=== PATIENT | male | born 1960 | race Caucasian/White ===

== ENCOUNTER 2023-11-07 11:15 | Oncology outpatient (recurring) (ONCR) | payer BC, SELFPAY ==
--- NOTE | 2023-11-03 12:48 | N.ONRAD NP_ITS ---
Radiation Oncology New Patient Visit Patient: Jack Sexton MR#: [id number] : 1960 Age: 63 Sex: Male Dictated by: Dr. Becky Masterson Date of Service: 11/03/2023 Referring Physician(s) : Diagnosis: Radiotherapy to date: Summary > No prior radiation therapy. Chief Complaint / History of Present Illness: Patient is a 63-year-old gentleman who was actually diagnosed with prostate cancer 4 to 5 years ago while he was living in [place]. 3 years ago he moved here to [place]. Since that time he had not really proceeded with any follow-up for his prostate cancer. In [place] he was under watchful waiting. He then began to have increasing shortness of breath and thought that he was perhaps out of shape. He went to his primary care and they identified a murmur which prompted immediate referral to [place] to the lieutenant/deputy. He subsequently has had an aortic valve replaced. This is been approximately 2 months ago. In the interim he had a repeat biopsy of his prostate which showed a Creston score 7 and 8 adenocarcinoma the prostate. Stage T1c N0, PSA 16. It was initially felt he might be a candidate for [employer]. He subsequently had a PET scan done which showed that he had involvement of the left seminal vesicle and pelvic and retroperitoneal nodes. He is here today to discuss external beam radiation. Current Medications: Allergies: Medical History: Ventricular fibrillation, vitamin D deficiency, anemia, prostate cancer, myocardial infarction, no history of collagen vascular disease. No previous radiation therapy. Surgical History: Aortic valve replacement, knee replacement Family History: Father in his early 60s, mother in her mid 70s she was an avid smoker Social History: He currently lives here in [place] with his . 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 Current Complaints / Review of Systems: . IP SS score of 10 Vital Signs: Performed on 11/03/2023 11:06 AM BMI - 25.991 kg/m2 (high), Height - 69 in, Weight - 176 lbs, Temperature - 97 f, Pulse - 69 /min, Respiration - 18 /min, O2 Sat - 99 %, Pain - 0, Fatigue - 0 and BP - 127/ 83 mm(hg). Physical Exam: General patient is in no apparent distress. He is accompanied by his . HEENT: Normocephalic atraumatic. Pupils are equal, sclera clear, extraocular muscles intact Pulmonary: Respiratory rate is regular nonlabored Cardiovascular: Regular rate and rhythm Abdomen: Patient has a very flat abdomen with minimal adipose tissue Extremities: Without clubbing cyanosis or edema Skin: No signs of ecchymoses or hyper or hypopigmentation Neurological: Alert and orient x 3. Gait and speech within normal limits Psych: Affect appropriate for current situation Performance Status: 100 Pathology: Adenocarcinoma the prostate Creston score 7 and 8 Lab: PSA 16 Imaging: See HPI Impression: Adenocarcinoma the prostate Cassy score 7 and 8, PSA 16 with a positive PET scan and pelvic and periaortic nodes Plan: I reviewed with the patient the past history. We discussed the results of his scans and his biopsy. We reviewed the most aggressive treatment option would be to proceed with ADT and external beam radiation. We discussed the pros and cons of ADT. He is visiting with medical oncology on Friday. We discussed the radiation portion of the treatment. We reviewed the simulation process. We discussed the daily treatment regiment. We reviewed the risks and side effects both acute and long-term. All of his questions and his 's questions were answered. I have recommended to him at this point that we proceed with 5 and half weeks of treatment along with ADT. We would allow his ADT to take effect for approximately a month prior to starting with the process of simulation. I have asked him to call on Friday and let us know when he will be receiving his first ADT. At this point he and his were satisfied. Neither had any additional questions. Patient has agreed to proceed with treatment. Will see him back in approximately a month to undergo simulation. Signed by: 11/03/2023 12:46:44 PM <<Signature on File>> Time spent with patient:60 CPT Code: CPT Code:
[2023-11-07 11:47] LABS: Basophils # 0.1 10^3/uL (0.0-0.1); Basophils % 0.8 %; Eosinophils # 0.2 10^3/uL (0.0-0.8); Hematocrit 41.3 % (37-53); Lymphocytes # 1.9 10^3/uL (0.8-4.8); Lymphocytes % 28.8 %; Mean Corpuscular HGB Conc 31.2 g/dL (30-55); Mean Corpuscular Volume 89.6 fl (82-101); Mean Platelet Volume 10.1 fL (7.4-10.4); Monocytes # 0.7 10^3/uL (0.2-0.9); Monocytes % 9.9 %; Neutrophils # 3.77 10^3/uL (1.8-7.7); Neutrophils % 57.3 %; Nucleated Red Blood Cells % 0 %; Platelet Count 200 10^3/cmm (157-399); Red Blood Count 4.61 10^6/uL (3.85-5.65); Red Cell Distribution Width 14.6 % (12.1-15.1); White Blood Count 6.57 10^3/uL (3.29-11.43)
[2023-11-07 12:06] LABS: Alanine Aminotransferase 30 U/L (0-41); Albumin Level 4.2 g/dL (3.5-5.2); Alkaline Phosphatase 64 U/L (40-130); Blood Urea Nitrogen 23 mg/dL (8-23); Calcium 9.2 mg/dL (8.5-10.5); Carbon Dioxide 25 mmol/L (22-29); Chloride 103 mmol/L (98-107); Creatinine Clr Calc Pharmacy 67.6975; Globulin 2.7 g/dL (1.3-4.6); Glomerular Filtration Rate 61.3 mL/min (90-130); Glucose 98 mg/dL (65-115); Osmolality Calculated 288 mOsm/kg (285-295); Sodium 137 mmol/L (136-145); Total Bilirubin 0.3 mg/dL (0.15-1.2); Total Protein 6.9 g/dL (6.6-8.7)
[2023-11-07 12:07] LABS: Anion Gap 13.8 (5-19); Aspartate Amino Transferase 22 U/L (0-40); Potassium 4.8 mmol/L (3.5-5.1)
== END 2023-11-11 23:59 | disposition home or self-care (01) ==
PROVIDERS: Internal Medicine Hematology & Oncology; PCP Family Medicine; Visit Provider Radiology Radiation Oncology
DX: Z53.9 Procedure and treatment not carried out, unspecified reason (principal); C61 Malignant neoplasm of prostate
CPT/HCPCS: 36415; 80053; 85025

== ENCOUNTER 2023-12-29 08:14 | Oncology outpatient (recurring) (ONCR) | payer BC, SELFPAY ==
[2023-12-29 08:37] LABS: Basophils # 0.1 10^3/uL (0.0-0.1); Basophils % 0.9 %; Eosinophils # 0.4 10^3/uL (0.0-0.8); Eosinophils % 7.3 %; Hematocrit 41.7 % (37-53); Lymphocytes # 1.5 10^3/uL (0.8-4.8); Lymphocytes % 27.9 %; Mean Corpuscular HGB Conc 31.9 g/dL (30-55); Mean Corpuscular Hemoglobin 27.7 pg (27-33); Mean Corpuscular Volume 86.7 fl (82-101); Mean Platelet Volume 10.2 fL (7.4-10.4); Monocytes # 0.7 10^3/uL (0.2-0.9); Monocytes % 12.2 %; Neutrophils # 2.84 10^3/uL (1.8-7.7); Neutrophils % 51.5 %; Nucleated Red Blood Cells % 0 %; Platelet Count 184 10^3/cmm (157-399); Red Blood Count 4.81 10^6/uL (3.85-5.65); Red Cell Distribution Width 16.2 % (12.1-15.1); White Blood Count 5.51 10^3/uL (3.29-11.43)
[2023-12-29 09:11] LABS: Alanine Aminotransferase 20 U/L (0-41); Alkaline Phosphatase 66 U/L (40-130); Anion Gap 13.4 (5-19); Aspartate Amino Transferase 24 U/L (0-40); Blood Urea Nitrogen 14 mg/dL (8-23); Calcium 8.8 mg/dL (8.5-10.5); Carbon Dioxide 24 mmol/L (22-29); Chloride 105 mmol/L (98-107); Globulin 2.5 g/dL (1.3-4.6); Glomerular Filtration Rate 67.8 mL/min (90-130); Glucose 90 mg/dL (65-115); Osmolality Calculated 286 mOsm/kg (285-295); Potassium 4.4 mmol/L (3.5-5.1); Sodium 138 mmol/L (136-145); Total Bilirubin 0.2 mg/dL (0.15-1.2); Total Protein 6.5 g/dL (6.6-8.7)
[2023-12-29] MEDS: leuprolide 22.5 mg Kit IM (11:32)
== END 2024-01-11 23:59 | disposition home or self-care (01) ==
PROVIDERS: Nurse Practitioner Family; PCP Family Medicine; Visit Provider Radiology Radiation Oncology
DX: Z51.11 Encounter for antineoplastic chemotherapy (principal); C61 Malignant neoplasm of prostate
CPT/HCPCS: 36415; 80053; 84153; 84403; 85025; 96402; J9217

== ENCOUNTER 2024-02-10 08:36 | Oncology outpatient (recurring) (ONCR) | payer BC, SELFPAY ==
--- NOTE | 2024-02-03 10:27 | ONCRAD TMN_ITS ---
Radiation Oncology Weekly Treatment Management Patient: Jack Sexton MR#: [id number] : 1960 Attending Physician: Dr. Becky Masterson Date of Service: 02/03/2024 Fractions: 2 out of 28, patient on Lupron Referring Physician(s) : Diagnosis: C61 - Malignant neoplasm of prostate, Diagnosed 08/07/2023 (Active) Radiotherapy to date: Course: Pelvis Prostate, Treatment Site: Prostate 70Gy, Ref. ID: [id number], Energy: 15X, Dose/Fx (cGy): 250, #Fx: 2 / 28, Dose Correction (cGy): 0, Total Dose Delivered (cGy): 500, Start Date: 02/02/2024, Elapsed Days: 1 Reason for visit: The patient is being seen today as part of their regularly scheduled weekly on treatment visits to assess for acute toxicities from radiotherapy. Review of Systems: Patient has noticed no changes. He did take a Zofran yesterday but did not take it today. Vital Signs: Performed on 02/03/2024 8:51 AM BMI - 26.079 kg/m2 (high), Height - 69 in, Weight - 176.6 lbs, Temperature - 96.5 f, Pulse - 56 /min (low), Respiration - 16 /min, O2 Sat - 99 %, Pain - 0, Fatigue - 0 and BP - 131/ 82 mm(hg). Physical Exam: No changes on exam Imaging: Radiation therapy imaging related to accurate target localization (i.e. KV, MV and CBCT) was reviewed. Appropriate changes, if any, were made to ensure treatment accuracy. Plan: Will continue with his treatments as planned. He did have several questions today which were answered. Signed by: Dr. Becky Masterson 02/03/2024 10:26:21 AM
--- NOTE | 2024-02-10 10:01 | ONCRAD TMN_ITS ---
Radiation Oncology Weekly Treatment Management Patient: Jack Sexton MR#: [id number] : 1960 Attending Physician: Dr. Becky Masterson Date of Service: 02/10/2024 Fractions: 7 out of 28 Referring Physician(s) : Diagnosis: C61 - Malignant neoplasm of prostate, Diagnosed 08/07/2023 (Active) Radiotherapy to date: Course: Pelvis Prostate, Treatment Site: Prostate 70Gy, Ref. ID: [id number], Energy: 15X, Dose/Fx (cGy): 250, #Fx: , Dose Correction (cGy): 0, Total Dose Delivered (cGy): 1,750, Start Date: 02/02/2024, Elapsed Days: 8 Reason for visit: The patient is being seen today as part of their regularly scheduled weekly on treatment visits to assess for acute toxicities from radiotherapy. Review of Systems: Patient noticed that last week he had 1 day where he was little fatigued. He otherwise has noticed no additional symptoms Vital Signs: Performed on 02/10/2024 8:58 AM BMI - 25.548 kg/m2 (high), Height - 69 in, Weight - 173 lbs, Temperature - 97.5 f, Pulse - 64 /min, Respiration - 17 /min, O2 Sat - 98 %, Pain - 0, Fatigue - 0 and BP - 132/ 84 mm(hg). Physical Exam: No changes on exam Imaging: Radiation therapy imaging related to accurate target localization (i.e. KV, MV and CBCT) was reviewed. Appropriate changes, if any, were made to ensure treatment accuracy. Plan: Will continue with treatments as planned Signed by: Dr. Becky Masterson 02/10/2024 10:00:07 AM
== END 2024-02-11 23:59 | disposition home or self-care (01) ==
PROVIDERS: PCP Family Medicine; Visit Provider Radiology Radiation Oncology
DX: Z51.11 Encounter for antineoplastic chemotherapy (principal); C61 Malignant neoplasm of prostate; Z53.9 Procedure and treatment not carried out, unspecified reason
CPT/HCPCS: 77300; 77301; 77334; 77338; 77385

== ENCOUNTER 2024-03-01 08:39 | Oncology outpatient (recurring) (ONCR) | payer BC, SELFPAY ==
--- NOTE | 2024-02-17 09:38 | ONCRAD TMN_ITS ---
Radiation Oncology Weekly Treatment Management Patient: Darshan Flores MR#: [id number] : 1960> Attending Physician: Dr. Becky Masterson Date of Service: 02/17/2024 Fractions: 12 of Referring Physician(s) : Diagnosis: C61 - Malignant neoplasm of prostate, Diagnosed 08/07/2023 (Active) Radiotherapy to date: Course: Pelvis Prostate, Treatment Site: Prostate 70Gy, Ref. ID: [id number], Energy: 15X, Dose/Fx (cGy): 250, #Fx: , Dose Correction (cGy): 0, Total Dose Delivered (cGy): 1,750, Start Date: 02/02/2024, End Date: 02/10/2024, Elapsed Days: 8 Treatment Site: Prostate 70Gy, Ref. ID: [id number], Energy: 15X, Dose/Fx (cGy): 250, #Fx: , Dose Correction (cGy): 0, Total Dose Delivered (cGy): 1,250, Start Date: 02/11/2024, Elapsed Days: 6 Reason for visit: The patient is being seen today as part of their regularly scheduled weekly on treatment visits to assess for acute toxicities from radiotherapy. Review of Systems: Patient has began to have some increased frequency of stools. He has noticed that the caliber is decreased in size. Sometimes he feels like he has not Fully emptied. He is also had some tenderness develop in the suprapubic area. He has noticed on occasion he has some mild dysuria when he pees. Vital Signs: Performed on 02/17/2024 8:28 AM BMI - 25.607 kg/m2 (high), Height - 69 in, Weight - 173.4 lbs, Temperature - 96.6 f, Pulse - 60 /min, Respiration - 18 /min, O2 Sat - 100 %, Pain - 2, Fatigue - 5 and BP - 128/ 81 mm(hg). Physical Exam: No changes on exam Imaging: Radiation therapy imaging related to accurate target localization (i.e. KV, MV and CBCT) was reviewed. Appropriate changes, if any, were made to ensure treatment accuracy. Plan: I reassured him at this time that is normal to have a little dysuria intermittently. We also talked about his bowel movements how sometimes of the prostate as well as it can cause issues with the caliber and the frequency. I recommended to him at this time that we not try anything to alternate with constipation or diarrhea and just try and understand that this is a normal process and part of the treatment. He verbalized understanding. Will continue with his treatments as planned. Signed by: Dr. Becky Masterson 02/17/2024 9:36:44 AM
--- NOTE | 2024-02-24 09:44 | ONCRAD TMN_ITS ---
Radiation Oncology Weekly Treatment Management Patient: Jack Sexton MR#: [id number] : 1960 Attending Physician: Dr. Becky Masterson Date of Service: 02/24/2024 Fractions: 17 out of 28 Referring Physician(s) : Diagnosis: C61 - Malignant neoplasm of prostate, Diagnosed 08/07/2023 (Active) Radiotherapy to date: Course: Pelvis Prostate, Treatment Site: Prostate 70Gy, Ref. ID: [id number], Energy: 15X, Dose/Fx (cGy): 250, #Fx: , Dose Correction (cGy): 0, Total Dose Delivered (cGy): 1,750, Start Date: 02/02/2024, End Date: 02/10/2024, Elapsed Days: Pelvis Prostate, Treatment Site: Prostate 70Gy, Ref. ID: [id number], Energy: 15X, Dose/Fx (cGy): 250, #Fx: , Dose Correction (cGy): 0, Total Dose Delivered (cGy): 2,500, Start Date: 02/11/2024, Elapsed Days: 13 Reason for visit: The patient is being seen today as part of their regularly scheduled weekly on treatment visits to assess for acute toxicities from radiotherapy. Review of Systems: Patient continues to have mild dysuria. He took a trip which was an overnight trip to [place] last weekend and had significant problems with the frequency. Now that he has been home this is returned back to his normal frequency. Vital Signs: Performed on 02/24/2024 9:02 AM BMI - 25.636 kg/m2 (high), Height - 69 in, Weight - 173.6 lbs, Temperature - 96.7 f, Pulse - 63 /min, Respiration - 16 /min, O2 Sat - 98 %, Pain - 0, Fatigue - 6 and BP - 125/ 82 mm(hg). Physical Exam: No changes on exam Imaging: Radiation therapy imaging related to accurate target localization (i.e. KV, MV and CBCT) was reviewed. Appropriate changes, if any, were made to ensure treatment accuracy. Plan: Will continue with his treatments as planned Signed by: Dr. Becky Masterson 02/24/2024 9:43:06 AM
== END 2024-03-01 23:59 | disposition home or self-care (01) ==
PROVIDERS: PCP Family Medicine; Visit Provider Radiology Radiation Oncology
DX: Z51.11 Encounter for antineoplastic chemotherapy (principal); C61 Malignant neoplasm of prostate; Z53.9 Procedure and treatment not carried out, unspecified reason; Z51.0 Encounter for antineoplastic radiation therapy
CPT/HCPCS: 77336; 77385

== ENCOUNTER 2024-03-10 08:39 | Oncology outpatient (recurring) (ONCR) | payer BC, SELFPAY ==
--- NOTE | 2024-03-02 10:06 | ONCRAD TMN_ITS ---
Radiation Oncology Weekly Treatment Management Patient: Jack Sexton MR#: [id number] : 1960 Attending Physician: Dr. Becky Masterson Date of Service: 03/02/2024 Fractions: 22 out of 28 Referring Physician(s) : Diagnosis: C61 - Malignant neoplasm of prostate, Diagnosed 08/07/2023 (Active) Radiotherapy to date: Course: Pelvis Prostate, Treatment Site: Prostate 70Gy, Ref. ID: [id number], Energy: 15X, Dose/Fx (cGy): 250, #Fx: , Dose Correction (cGy): 0, Total Dose Delivered (cGy): 1,750, Start Date: 02/02/2024, End Date: 02/10/2024, Elapsed Days: 8 Course: Pelvis Prostate, Treatment Site: Prostate 70Gy, Ref. ID: [id number], Energy: 15X, Dose/Fx (cGy): 250, #Fx: , Dose Correction (cGy): 0, Total Dose Delivered (cGy): 3,750, Start Date: 02/11/2024, Elapsed Days: 20 Reason for visit: The patient is being seen today as part of their regularly scheduled weekly on treatment visits to assess for acute toxicities from radiotherapy. Review of Systems: Patient continues to have some urgency and frequency. He did start taking his Flomax twice a day. He feels only changes this week or as his stream is a little weaker Vital Signs: Performed on 03/02/2024 8:34 AM BMI - 25.666 kg/m2 (high), Height - 69 in, Weight - 173.8 lbs, Temperature - 96.8 f, Pulse - 61 /min, Respiration - 16 /min, O2 Sat - 98 %, Pain - 0, Fatigue - 2 and BP - 118/ 72 mm(hg). Physical Exam: No changes on exam Imaging: Radiation therapy imaging related to accurate target localization (i.e. KV, MV and CBCT) was reviewed. Appropriate changes, if any, were made to ensure treatment accuracy. Plan: Will continue with treatments as planned. We talked about follow-up schedule. He will get his next Lupron injection March 16. Signed by: Dr. Becky Masterson 03/02/2024 10:04:54 AM
--- NOTE | 2024-03-09 10:16 | ONCRAD TMN_ITS ---
Radiation Oncology Weekly Treatment Management Patient: Darshan Flores MR#: [id number] : 1960> Attending Physician: Dr. Becky Masterson Date of Service: 03/09/2024 Fractions: 27 out of 28 Referring Physician(s) : Diagnosis: C61 - Malignant neoplasm of prostate, Diagnosed 08/07/2023 (Active) Radiotherapy to date: Course: Pelvis Prostate, Treatment Site: Prostate 70Gy, Ref. ID: [id number], Energy: 15X, Dose/Fx (cGy): 250, #Fx: , Dose Correction (cGy): 0, Total Dose Delivered (cGy): 1,750, Start Date: 02/02/2024, Elapsed Days: 8 Treatment Site: Prostate 70Gy, Ref. ID: [id number], Energy: 15X, Dose/Fx (cG,): 250, #Fx: , Dose Correction (cGy): 0, Total Dose Delivered (cGy): 5,000, Start Date: 02/11/2024, Elapsed Days: 27 Reason for visit: The patient is being seen today as part of their regularly scheduled weekly on treatment visits to assess for acute toxicities from radiotherapy. Review of Systems: Patient continues to have weak stream and hesitancy. He is taking Flomax twice a day Vital Signs: Performed on 03/09/2024 8:35 AM BMI - 25.725 kg/m2 (high), Height - 69 in, Weight - 174.2 lbs, Temperature - 96.7 f, Pulse - 60 /min, Respiration - 18 /min, O2 Sat - 99 %, Pain - 0, Fatigue - 2 and BP - 122/ 76 mm(hg). Physical Exam: No changes on exam Imaging: Radiation therapy imaging related to accurate target localization (i.e. KV, MV and CBCT) was reviewed. Appropriate changes, if any, were made to ensure treatment accuracy. Plan: We talked at length today about symptoms and his resolution over the next month. We talked about follow-up and how he will be back on the nights to meet with medical oncology about additional Lupron injection. I reviewed with him the typical course of coming off of the Lupron and what will happen with the PSA over the next 2 to 3 years. We talked about some additional things he can do in the functional medicine round that will help decrease his recurrence rate. He had no additional questions or concerns at this point and we will see him back tomorrow for his final treatment. Signed by: Dr. Becky Masterson 03/09/2024 10:15:33 AM
--- NOTE | 2024-03-11 13:03 | N.ONRD TS_ITS ---
Radiation Oncology Treatment Summary Patient: Darshan>Jack> MR#: [id number] : 1960> Age: 63> Sex: Male Dictated by: Dr. Becky Masterson Date of Service: 03/10/2024 Referring Physician(s) : Diagnosis: C61 - Malignant neoplasm of prostate, Diagnosed 08/07/2023 (Active) Radiotherapy to Date: Course: Pelvis Prostate, Treatment Site: Prostate 70Gy, Ref. ID: [id number], Energy: 15X, Dose/Fx (cGy): 250, #Fx: , Dose Correction (cGy): 0, Total Dose Delivered (cGy): 1,750, Start Date: 02/02/2024, End Date: 02/10/2024, Elapsed Days: 8 Treatment Site: Prostate 70Gy, Ref. ID: [id number], Energy: 15X, Dose/Fx (cGy): 250, #Fx: , Dose Correction (cGy): 0, Total Dose Delivered (cGy): 5,250, Start Date: 02/11/2024, End Date: 03/10/2024, Elapsed Days: 28 Clinical Summary: The patient tolerated RT well. He did have increased frequency of urination and hesitancy as well as weak stream. Plan: End of treatment today. Continue on the above medication until the skin reaction resolves. Follow up in one month. Signed by: Dr. Becky Masterson>03/11/2024 1:02:29 PM <<Signature on File>>
== END 2024-03-13 23:59 | disposition home or self-care (01) ==
PROVIDERS: PCP Family Medicine; Visit Provider Radiology Radiation Oncology
DX: Z51.0 Encounter for antineoplastic radiation therapy (principal); C61 Malignant neoplasm of prostate
CPT/HCPCS: 77336; 77385

== ENCOUNTER 2024-03-22 09:17 | Oncology outpatient (recurring) (ONCR) | payer BC, SELFPAY ==
[2024-03-22 09:32] LABS: Eosinophils # 0.3 10^3/uL (0.0-0.8); Eosinophils % 6.5 %; Hematocrit 37.6 % (37-53); Lymphocytes # 0.4 10^3/uL (0.8-4.8); Lymphocytes % 9.4 %; Mean Corpuscular Hemoglobin 28.9 pg (27-33); Mean Corpuscular Volume 87.6 fl (82-101); Mean Platelet Volume 9.4 fL (7.4-10.4); Monocytes # 0.7 10^3/uL (0.2-0.9); Monocytes % 16.5 %; Neutrophils # 2.74 10^3/uL (1.8-7.7); Neutrophils % 66.4 %; Nucleated Red Blood Cells % 0 %; Platelet Count 144 10^3/cmm (157-399); Red Blood Count 4.29 10^6/uL (3.85-5.65); Red Cell Distribution Width 16.3 % (12.1-15.1); White Blood Count 4.13 10^3/uL (3.29-11.43)
[2024-03-22 10:05] LABS: Alanine Aminotransferase 23 U/L (0-41); Alkaline Phosphatase 57 U/L (40-130); Anion Gap 13.4 (5-19); Aspartate Amino Transferase 24 U/L (0-40); Blood Urea Nitrogen 19 mg/dL (8-23); Calcium 8.9 mg/dL (8.5-10.5); Carbon Dioxide 25 mmol/L (22-29); Chloride 106 mmol/L (98-107); Globulin 2.4 g/dL (1.3-4.6); Glomerular Filtration Rate 85.5 mL/min (90-130); Glucose 87 mg/dL (65-115); Osmolality Calculated 292 mOsm/kg (285-295); Potassium 4.4 mmol/L (3.5-5.1); Prostate Specific Antigen 0.202 ng/mL (0-4); Sodium 140 mmol/L (136-145); Testosterone Total 2.5 ng/dL (193-740); Total Bilirubin 0.4 mg/dL (0.15-1.2); Total Protein 6.4 g/dL (6.6-8.7)
[2024-03-22] MEDS: leuprolide 22.5 mg Kit IM (12:26)
[2024-03-22 12:33] LABS: Charge for UA Resulting for Rev
[2024-03-22 12:54] LABS: Bilirubin Urine Negative (Negative); Blood Urine Negative (Negative); Glucose Urine UA Negative (Normal); Ketones Urine Negative (Negative); Leukocyte Esterase Urine Negative (Negative); Nitrate Urine Negative (Negative); Protein Urine Negative (Negative); Specific Gravity, Urine 1.008 (1.005-1.030); Urine Appearance Clear (CLEAR); Urine Color Yellow (Yellow); Urobilinogen Urine 0.2 mg/dL (Negative); pH Urine 5.5 (5-7)
[2024-03-22 12:58] LABS: Bacteria Urine None Seen /hpf; Hyaline Casts Urine 0-4 /lpf; RBC Urine 0-2 /hpf (0-2); Squamous Epithelial Cell Urine 0-5 /hpf (0-5); WBC Urine 0-5 /hpf (0-5)
== END 2024-04-12 23:59 | disposition home or self-care (01) ==
PROVIDERS: Nurse Practitioner Family; PCP Family Medicine; Visit Provider Radiology Radiation Oncology
DX: C61 Malignant neoplasm of prostate; Z53.9 Procedure and treatment not carried out, unspecified reason; Z51.12 Encounter for antineoplastic immunotherapy; Z95.2 Presence of prosthetic heart valve
CPT/HCPCS: 36415; 80053; 81003; 81015; 84153; 84403; 85025; 96402; J9217

== ENCOUNTER 2024-07-26 11:32 | Oncology outpatient (recurring) (ONCR) | payer BC, SELFPAY ==
[2024-07-26 11:45] LABS: Basophils % 0.8 %; Eosinophils # 0.2 10^3/uL (0.0-0.8); Eosinophils % 4.3 %; Hematocrit 40.6 % (37-53); Lymphocytes # 0.7 10^3/uL (0.8-4.8); Mean Corpuscular HGB Conc 32.3 g/dL (30-55); Mean Corpuscular Hemoglobin 29.4 pg (27-33); Mean Corpuscular Volume 91.2 fl (82-101); Mean Platelet Volume 9.6 fL (7.4-10.4); Monocytes # 0.4 10^3/uL (0.2-0.9); Monocytes % 10.3 %; Neutrophils # 2.69 10^3/uL (1.8-7.7); Neutrophils % 67.1 %; Nucleated Red Blood Cells % 0 %; Platelet Count 166 10^3/cmm (157-399); Red Blood Count 4.45 10^6/uL (3.85-5.65); Red Cell Distribution Width 13.6 % (12.1-15.1)
[2024-07-26 12:14] LABS: Alanine Aminotransferase 19 U/L (0-41); Albumin Level 4.2 g/dL (3.5-5.2); Alkaline Phosphatase 54 U/L (40-130); Anion Gap 15.5 (5-19); Aspartate Amino Transferase 21 U/L (0-40); Blood Urea Nitrogen 22 mg/dL (8-23); Calcium 9.4 mg/dL (8.5-10.5); Carbon Dioxide 24 mmol/L (22-29); Chloride 103 mmol/L (98-107); Creatinine Clr Calc Pharmacy 88.3513; Globulin 2.3 g/dL (1.3-4.6); Glomerular Filtration Rate 85.2 mL/min (90-130); Glucose 94 mg/dL (65-115); Osmolality Calculated 289 mOsm/kg (285-295); Potassium 4.5 mmol/L (3.5-5.1); Prostate Specific Antigen 0.059 ng/mL (0-4); Sodium 138 mmol/L (136-145); Total Bilirubin 0.3 mg/dL (0.15-1.2); Total Protein 6.5 g/dL (6.6-8.7)
== END 2024-08-13 23:59 | disposition home or self-care (01) ==
PROVIDERS: Nurse Practitioner Family; PCP Family Medicine; Visit Provider Radiology Radiation Oncology
DX: Z53.9 Procedure and treatment not carried out, unspecified reason; C61 Malignant neoplasm of prostate
CPT/HCPCS: 36415; 80053; 84153; 84403; 85025

== ENCOUNTER 2024-07-27 14:30 | Emergency (ER) | payer BC, SELFPAY ==
[2024-07-27] VITALS (10 sets, daily range): BP systolic 111–128; BP diastolic 64–81; PULSE 60–78; RESP 13–18; TEMP 36.6; O2SAT 94–98; BMI 25.8
--- NOTE | 2024-07-27 14:39 | ECG_ITS ---
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 Measurements Intervals [place] Rate: 64 P: 0 SC: 0 QRS: -58 QRSD: 120 T: 71 QT: 436 QTc: 452 Interpretive Statements ectopic atrial rhythm LEFT ANTERIOR FASCICULAR BLOCK [QRS AXIS <= -45, QR IN I, RS IN II] No previous ECG available for comparison Electronically Signed On 07-28-2024 00:02:59 DIRECTOR PAYER by Kayleen Scales M.D. [email or web address]
--- NOTE | 2024-07-27 15:48 | ED_ITS ---
Documented by User: Bobby CarrilloDO 07/28/24 05:46 HPI - Dizziness 2 General: Chief Complaint: Dizziness Stated Complaint: dizzy spell Time Seen by Provider: 07/27/24 15:20 History of Present Illness: HPI Narrative: 64-year-old male presents emergency room after a near syncopal episode. He was at work and lifted a relatively heavy object about chest level and then placed on a shelf after walking with it a few feet. Shortly after that he got very difficult dizzy lightheaded staggering like gait. He sat down and was able to recover. Never had any sharp chest pain or shortness of breath did get a little bit of blurry vision associated with this there is no actual loss of consciousness. Patient has a history of a previous aortic valve replacement that was done by open thoracotomy earlier this year. It is a biosynthetic valve and he is not on any anticoagulants. He has a history of prostate cancer with localized metastasis. For which she has received radiation chemo and hormone suppression therapy he recently stopped the hormone suppression therapy. He is not having any chest pain shortness of breath at this time he never fell did not strike his head. Patient presents to the ER today after being and suddenly became dizzy with a staggering gait that lasted about 5 to 10 minutes. This happened immediately after patient lifted a 65 machine over his head. Patient does have a history of prostate cancer and is currently undergoing treatment. Patient denies any coughs colds fevers chills etc. Associated symptoms: Denies chest pain or chills Related Data Home Medications Medication Instructions Recorded Confirmed aspirin 81 mg tablet,delayed 81 mg PO DAILY 11/07/23 07/27/24 release metoprolol tartrate 25 mg tablet 12.5 mg PO DAILY 11/07/23 07/27/24 Previous Rx's Medication Instructions Recorded Lupron Depot (3 month) 22.5 mg (3 22.5 mg IM .[id number] #1 ea 12/10/23 month) intramuscular syringe kit (leuprolide (3 month)) tamsulosin 0.4 mg capsule 0.4 mg PO .QHS #30 caps 07/26/24 Allergies Allergy/AdvReac Type Severity Reaction Status Date / Time No Known Allergies Allergy Verified 07/27/24 14:38 Review of Systems 2 Const: Denies: fever(s) or chills Card: Denies: chest pain Resp: Denies: dyspnea GI: Denies: abdominal pain : Denies: dysuria, urinary frequency or urinary urgency Musc: Denies: neck pain or back pain Skin/Breast: Denies: rash PFSH ED 2 PFSH: Social History Smoking and tobacco/nicotine status: never used tobacco/nicotine Physical Exam 2 Const: COMMON NORMALS: no acute distress GENERAL APPEARANCE: cooperative and comfortable ORIENTATION/CONSCIOUSNESS: Yes awake, Yes oriented to person, Yes oriented to place and Yes oriented to time HENMT: COMMON NORMALS: normocephalic, atraumatic and hearing grossly normal bilaterally HEAD & SCALP: normocephalic and atraumatic Resp: COMMON NORMALS: normal respiratory effort, No retractions, No use of accessory muscles and clear to auscultation bilaterally AUSCULTATION: clear to auscultation bilaterally Cardio: COMMON NORMALS: regular rate and regular rhythm RATE: regular rate RHYTHM: regular rhythm HEART SOUNDS: Murmur heart sound present (Grade 1 systolic murmur left sternal border) GI: COMMON NORMALS: Soft to palpation and No hepatosplenomegaly present A USCULTATION: Yes normoactive bowel sounds PALPATION: Yes Soft to palpation, No Tenderness to palpation present (GI), No Guarding due to palpation present (GI) and Yes No hepatosplenomegaly present Extremity: COMMON NORMALS: normal to inspection, capillary refill normal, no clubbing, cyanosis or edema, no calf tenderness and no pedal edema Neuro: SENSORIUM/ORIENTATION: Yes oriented to person, Yes oriented to place and Yes oriented to time Skin: COMMON NORMALS: no rashes or lesions noted GENERAL SKIN EXAM: no rashes or lesions noted Course 2 Vital Signs: Vital signs: Vital Signs Temperature 97.8 F 07/27/24 14:34 Pulse Rate 66 07/27/24 19:35 Respiratory Rate 13 07/27/24 19:35 Blood Pressure 116/81 07/27/24 19:35 Pulse Oximetry 95 07/27/24 19:35 Oxygen Delivery Me thod Room Air 07/27/24 18:37 MDM - Dizziness Medical Decision Making Care signed out to Dr. Newman at change of shift. See final notes for diagnosis and disposition. Care transferred over myself at shift change, reviewed lab work, reviewed chest x-ray, all essentially normal. Discussed these results with the patient. Patient be discharged home. Lab Data 07/27/24 16:05 07/27/24 16:05 Radiology Impressions Chest X-Ray 07/27/24 17:04 IMPRESSION: No acute findings. Laboratory Results WBC 4.69 10^3/uL (3.29-11.43) 07/27/24 16:05 RBC 4.50 10^6/uL (3.85-5.65) 07/27/24 16:05 Hgb 13.40 g/dL (11.27-16.99) 07/27/24 16:05 Hct 41.4 % (37-53) 07/27/24 16:05 MCV 92.0 fl (82-101) 07/27/24 16:05 MCH 29.8 pg (27-33) 07/27/24 16:05 MCHC 32.4 g/dL (30-55) 07/27/24 16:05 RDW 13.8 % (12.1-15.1) 07/27/24 16:05 Plt Count 162 10^3/cmm (157-399) 07/27/24 16:05 MPV 9.4 fL (7.4-10.4) 07/27/24 16:05 Neut % (Auto) 78.4 % 07/27/24 16:05 Lymph % (Auto) 10.0 % 07/27/24 16:05 [place] % (Auto) 7.2 % 07/27/24 16:05 Eos % (Auto) 3.8 % 07/27/24 16:05 Baso % (Auto) 0.4 % 07/27/24 16:05 Neut # (Auto) 3.67 10^3/uL (1.8-7.7) 07/27/24 16:05 Lymph # (Auto) 0.5 10^3/uL (0.8-4.8) L 07/27/24 16:05 [place] # (Auto) 0.3 10^3/uL (0.2-0.9) 07/27/24 16:05 Eos # (Auto) 0.2 10^3/uL (0.0-0.8) 07/27/24 16:05 Baso # (Auto) 0.0 10^3/uL (0.0-0.1) 07/27/24 16:05 Nucleated RBC % (auto) 0 % 07/27/24 16:05 Nucleated RBCs # 0.0 /100WBC 07/27/24 16:05 PT 12.60 SECONDS (12.1-14.9) 07/27/24 16:05 INR 0.88 (0.8-1.2) 07/27/24 16:05 Sodium 135 mmol/L (136-145) L 07/27/24 16:05 Potassium 4.2 mmol/L (3.5-5.1) 07/27/24 16:05 Chloride 98 mmol/L (98-107) 07/27/24 16:05 Carbon Dioxide 26 mmol/L (22-29) 07/27/24 16:05 Anion Gap 15.2 (5-19) 07/27/24 16:05 BUN 29 mg/dL (8-23) H 07/27/24 16:05 Creatinine 1.2 mg/dL (0.7-1.2) 07/27/24 16:05 GFR Calculation 61.1 mL/min (90-130) L 07/27/24 16:05 Glucose 83 mg/dL (65-115) 07/27/24 16:05 Calculated Osmolality 285 mOsm/kg (285-295) 07/27/24 16:05 Calcium 9.8 mg/dL (8.5-10.5) 07/27/24 16:05 Total Bilirubin 0.2 mg/dL (0.15-1.2) 07/27/24 16:05 AST 20 U/L (0-40) 07/27/24 16:05 ALT 18 U/L (0-41) 07/27/24 16:05 Alkaline Phosphatase 74 U/L (40-130) 07/27/24 16:05 Troponin T Baseline 14 ng/L (0-15) 07/27/24 16:05 Troponin T 120 Minute 14.90 ng/L (0-15) 07/27/24 18:20 Delta Troponin T 0.90 ABS# (0-10) 07/27/24 18:20 Total Protein 6.8 g/dL (6.6-8.7) 07/27/24 16:05 Albumin 4.4 g/dL (3.5-5.2) 07/27/24 16:05 Globulin 2.4 g/dL (1.3-4.6) 07/27/24 16:05 Discharge Plan Discharge Patient Disposition: Home Clinical Impression: Vertigo Condition: Stable Prescriptions: No Action tamsulosin 0.4 mg capsule 0.4 mg PO .QHS Qty: 30 2RF aspirin 81 mg tablet,delayed release (DR/EC) 81 mg PO DAILY metoprolol tartrate 25 mg tablet 12.5 mg PO DAILY Lupron Depot (3 month) 22.5 mg syringe kit 22.5 mg IM .[id number] Qty: 1 3RF Discharge Orders: Discharge ED (Routine); Ordered 07/27/24 Ordered By: Anthony Newman Referrals: Artur Ordonez MD [Primary Care Provider] - 1 week Patient Instructions: Vertigo (ED) Activity Restrictions/Additional Instructions: Thank you for choosing [facility] for your healthcare needs today. Please realize that you were seen in the emergency department and that we are providing you with an emergency medical screening exam and this may not be a complete and all exclusive of all testing and/or medical workup we may need to determine your element or severity of your illness. It is very important that you follow-up as instructed with your primary care provider or specialist for the additional evaluation and to discuss your medical treatment plan. You may return to the emergency department should you have concerns or if your condition changes or worsens in any way. Coding Level of Care Code ED [employer]ist for [employer] Documented by User: Anthony Newman DO 07/27/24 20:03 HPI - Dizziness 2 General: Chief Complaint: Dizziness Stated Complaint: dizzy spell Time Seen by Provider: 07/27/24 15:20 History of Present Illness: HPI Narrative: Patient presents to the ER today after being and suddenly became dizzy with a staggering gait that lasted about 5 to 10 minutes. This happened immediately after patient lifted a 65 machine over his head. Patient does have a history of prostate cancer and is currently undergoing treatment. Patient denies any coughs colds fevers chills etc. Related Data Home Medications Medication Instructions Recorded Confirmed aspirin 81 mg tablet,delayed 81 mg PO DAILY 11/07/23 07/27/24 release metoprolol tartrate 25 mg tablet 12.5 mg PO DAILY 11/07/23 07/27/24 Previous Rx's Medication Instructions Recorded Lupron Depot (3 month) 22.5 mg (3 22.5 mg IM .[id number] #1 ea 12/10/23 month) intramuscular syringe kit (leuprolide (3 month)) tamsulosin 0.4 mg capsule 0.4 mg PO .QHS #30 caps 07/26/24 Allergies Allergy/AdvReac Type Severity Reaction Status Date / Time No Known Allergies Allergy Verified 07/27/24 14:38 Review of Systems 2 General: Reports: 10 or more systems reviewed and unremarkable except in HPI and below PFSH ED 2 PFSH: Social History Smoking and tobacco/nicotine status: never used tobacco/nicotine Physical Exam 2 Const: COMMON NORMALS: no acute distress, average body habitus, patient oriented x3, no limitations, healthy appearing, alert and well nourished HENMT: COMMON NORMALS: normocephalic, atraumatic, hearing grossly normal bilaterally, external ears normal, Normal external nose present and moist oral mucous membranes HEAD & SCALP: normocephalic and atraumatic NOSE: Normal external nose present EXTERNAL EAR: Yes external ears normal Eye: COMMON NORMALS: Equal, round and reactive pupils present, EOMs intact bilaterally, conjunctivae normal and no scleral icterus CONJUNCTIVA: Yes conjunctivae normal PUPIL: Yes Equal, round and reactive pupils present Neck/C-Spine: COMMON NORMALS: full ROM, no lymphadenopathy, supple, no meningeal signs, no JVD and Thyroid normal THYROID: Thyroid normal Chest: COMMONS NORMALS: normal inspection of the chest and normal palpation of entire chest wall Resp: COMMON NORMALS: normal respiratory effort, No retractions, No use of accessory muscles and clear to auscultation bilaterally AUSCULTATION: clear to auscultation bilaterally Cardio: COMMON NORMALS: no JVD, regular rate, regular rhythm, S1 normal heart sound present, S2 normal heart sound present, No gallops present (Cardio), No clicks present (Cardio), No murmurs present (Cardio) and No rub (Cardio) R ATE: regular rate RHYTHM: regular rhythm HEART SOUNDS: S1 normal heart sound present and S2 normal heart sound present GI: COMMON NORMALS: Normal to inspection, nondistended, normoactive bowel sounds present, Soft to palpation, non-tender, No hepatosplenomegaly present and no masses PALPATION: Yes Soft to palpation and Yes No hepatosplenomegaly present Neuro: COMMON NORMALS: patient oriented x3 SENSORIUM/ORIENTATION: Yes alert MENINGEAL SIGNS: Yes no meningeal signs Course 2 Vital Signs: Vital signs: Vital Signs Temperature 97.8 F 07/27/24 14:34 Pulse Rate 66 07/27/24 19:35 Respiratory Rate 13 07/27/24 19:35 Blood Pressure 116/81 07/27/24 19:35 Pulse Oximetry 95 07/27/24 19:35 Oxygen Delivery Me thod Room Air 07/27/24 18:37 MDM - Dizziness Medical Decision Making Care transferred over myself at shift change, reviewed lab work, reviewed chest x-ray, all essentially normal. Discussed these results with the patient. Patient be discharged home. Medical Records I reviewed the patient's medical records. Lab Data I reviewed the patient's lab results. 07/27/24 16:05 07/27/24 16:05 Radiology Impressions Chest X-Ray 07/27/24 17:04 IMPRESSION: No acute findings. Laboratory Results WBC 4.69 10^3/uL (3.29-11.43) 07/27/24 16:05 RBC 4.50 10^6/uL (3.85-5.65) 07/27/24 16:05 Hgb 13.40 g/dL (11.27-16.99) 07/27/24 16:05 Hct 41.4 % (37-53) 07/27/24 16:05 MCV 92.0 fl (82-101) 07/27/24 16:05 MCH 29.8 pg (27-33) 07/27/24 16:05 MCHC 32.4 g/dL (30-55) 07/27/24 16:05 RDW 13.8 % (12.1-15.1) 07/27/24 16:05 Plt Count 162 10^3/cmm (157-399) 07/27/24 16:05 MPV 9.4 fL (7.4-10.4) 07/27/24 16:05 Neut % (Auto) 78.4 % 07/27/24 16:05 Lymph % (Auto) 10.0 % 07/27/24 16:05 [place] % (Auto) 7.2 % 07/27/24 16:05 Eos % (Auto) 3.8 % 07/27/24 16:05 Baso % (Auto) 0.4 % 07/27/24 16:05 Neut # (Auto) 3.67 10^3/uL (1.8-7.7) 07/27/24 16:05 Lymph # (Auto) 0.5 10^3/uL (0.8-4.8) L 07/27/24 16:05 [place] # (Auto) 0.3 10^3/uL (0.2-0.9) 07/27/24 16:05 Eos # (Auto) 0.2 10^3/uL (0.0-0.8) 07/27/24 16:05 Baso # (Auto) 0.0 10^3/uL (0.0-0.1) 07/27/24 16:05 Nucleated RBC % (auto) 0 % 07/27/24 16:05 Nucleated RBCs # 0.0 /100WBC 07/27/24 16:05 PT 12.60 SECONDS (12.1-14.9) 07/27/24 16:05 INR 0.88 (0.8-1.2) 07/27/24 16:05 Sodium 135 mmol/L (136-145) L 07/27/24 16:05 Potassium 4.2 mmol/L (3.5-5.1) 07/27/24 16:05 Chloride 98 mmol/L (98-107) 07/27/24 16:05 Carbon Dioxide 26 mmol/L (22-29) 07/27/24 16:05 Anion Gap 15.2 (5-19) 07/27/24 16:05 BUN 29 mg/dL (8-23) H 07/27/24 16:05 Creatinine 1.2 mg/dL (0.7-1.2) 07/27/24 16:05 GFR Calculation 61.1 mL/min (90-130) L 07/27/24 16:05 Glucose 83 mg/dL (65-115) 07/27/24 16:05 Calculated Osmolality 285 mOsm/kg (285-295) 07/27/24 16:05 Calcium 9.8 mg/dL (8.5-10.5) 07/27/24 16:05 Total Bilirubin 0.2 mg/dL (0.15-1.2) 07/27/24 16:05 AST 20 U/L (0-40) 07/27/24 16:05 ALT 18 U/L (0-41) 07/27/24 16:05 Alkaline Phosphatase 74 U/L (40-130) 07/27/24 16:05 Troponin T Baseline 14 ng/L (0-15) 07/27/24 16:05 Troponin T 120 Minute 14.90 ng/L (0-15) 07/27/24 18:20 Delta Troponin T 0.90 ABS# (0-10) 07/27/24 18:20 Total Protein 6.8 g/dL (6.6-8.7) 07/27/24 16:05 Albumin 4.4 g/dL (3.5-5.2) 07/27/24 16:05 Globulin 2.4 g/dL (1.3-4.6) 07/27/24 16:05 All radiology interpretation(s) finalized by discharge Discharge Plan Discharge Patient Disposition: Home Clinical Impression: Vertigo Condition: Stable Prescriptions: No Action tamsulosin 0.4 mg capsule 0.4 mg PO .QHS Qty: 30 2RF aspirin 81 mg tablet,delayed release (DR/EC) 81 mg PO DAILY metoprolol tartrate 25 mg tablet 12.5 mg PO DAILY Lupron Depot (3 month) 22.5 mg syringe kit 22.5 mg IM .[id number] Qty: 1 3RF Discharge Orders: Discharge ED (Routine); Ordered 07/27/24 Ordered By: Anthony Newman Referrals: Artur Ordonez MD [Primary Care Provider] - 1 week Patient Instructions: Vertigo (ED) Activity Restrictions/Additional Instructions: Thank you for choosing [facility] for your healthcare needs today. Please realize that you were seen in the emergency department and that we are providing you with an emergency medical screening exam and this may not be a complete and all exclusive of all testing and/or medical workup we may need to determine your element or severity of your illness. It is very important that you follow-up as instructed with your primary care provider or specialist for the additional evaluation and to discuss your medical treatment plan. You may return to the emergency department should you have concerns or if your condition changes or worsens in any way. Coding Level of Care Code ED [employer]ist for [employer] Rose
[2024-07-27 16:13] LABS: Basophils % 0.4 %; Eosinophils # 0.2 10^3/uL (0.0-0.8); Eosinophils % 3.8 %; Hematocrit 41.4 % (37-53); Lymphocytes # 0.5 10^3/uL (0.8-4.8); Mean Corpuscular HGB Conc 32.4 g/dL (30-55); Mean Corpuscular Hemoglobin 29.8 pg (27-33); Mean Platelet Volume 9.4 fL (7.4-10.4); Monocytes # 0.3 10^3/uL (0.2-0.9); Monocytes % 7.2 %; Neutrophils # 3.67 10^3/uL (1.8-7.7); Neutrophils % 78.4 %; Nucleated Red Blood Cells % 0 %; Platelet Count 162 10^3/cmm (157-399); Red Cell Distribution Width 13.8 % (12.1-15.1); White Blood Count 4.69 10^3/uL (3.29-11.43)
[2024-07-27 16:26] LABS: INR 0.88 (0.8-1.2)
[2024-07-27 16:30] LABS: Alanine Aminotransferase 18 U/L (0-41); Albumin Level 4.4 g/dL (3.5-5.2); Alkaline Phosphatase 74 U/L (40-130); Anion Gap 15.2 (5-19); Aspartate Amino Transferase 20 U/L (0-40); Blood Urea Nitrogen 29 mg/dL (8-23); Calcium 9.8 mg/dL (8.5-10.5); Carbon Dioxide 26 mmol/L (22-29); Chloride 98 mmol/L (98-107); Globulin 2.4 g/dL (1.3-4.6); Glomerular Filtration Rate 61.1 mL/min (90-130); Glucose 83 mg/dL (65-115); Osmolality Calculated 285 mOsm/kg (285-295); Potassium 4.2 mmol/L (3.5-5.1); Sodium 135 mmol/L (136-145); Total Bilirubin 0.2 mg/dL (0.15-1.2); Total Protein 6.8 g/dL (6.6-8.7)
--- NOTE | 2024-07-27 17:04 | XRR_ITS ---
PROCEDURE INFORMATION: Exam: XR Chest Exam date and time: 07/27/2024 5:10 PM Age: 64 years old Clinical indication: Cough and dyspnea; Prior surgery; Surgery date: 6+ months; Surgery type: Open heart; Additional info: Dyspnea/cough TECHNIQUE: Imaging protocol: Radiologic exam of the chest. Views: 1 view. COMPARISON: CR XR chest 2V* [id number] 07/22/2023 10:23 AM FINDINGS: Lungs: Unremarkable. No consolidation. Pleural spaces: Unremarkable. No pleural effusion. No pneumothorax. Heart/Mediastinum: Cardiac valve replacement noted. No cardiomegaly. Bones/joints: Sternotomy wires noted. Visualized osseous structures are intact. XR/XR chest 1V portable [id number] IMPRESSION: No acute findings.
[2024-07-27 17:53] LABS: Troponin(5th) Baseline 14 ng/L (0-15)
== END 2024-07-27 20:23 | disposition home or self-care (01) ==
PROVIDERS: Emergency Medicine; Emergency Provider Family Medicine; PCP Family Medicine
DX: R42 Dizziness and giddiness (principal); Z79.82 Long term (current) use of aspirin
CPT/HCPCS: 71045; 80053; 84484; 85025; 85610; 93005; 99285

== ENCOUNTER 2024-09-21 07:09 | Outpatient (CLI) | payer BC, SELFPAY ==
--- NOTE | 2024-09-21 07:21 | MR_ITS ---
WS: [id number] MRI BRAIN WITH AND WITHOUT CONTRAST HISTORY: BINOCULAR DIPLOPIA COMPARISON: None available. TECHNIQUE: Multiplanar imaging performed through the brain with MultiHance 18 ml's IV. No acute infarcts are seen. [place]-white matter differentiation is well preserved. Mild bilateral symmetric atrophy and small vessel disease. Multiple very small lacunar infarcts are noted bilaterally in the cerebellum, slightly greater distribution on the LEFT. No significant hippocampal atrophy. Prominent perivascular space along the inferior RIGHT basal ganglia. No susceptibility artifacts or prior lacunar infarcts. Ventricles and extra-axial spaces are normal. Clivus and pituitary gland are normal. Postcontrast images are negative for masses or vascular malformations. Dural venous sinuses are normal. Paranasal sinuses: Tiny mucous retention cyst in the RIGHT maxillary sinus. Mastoid air cells: Normal. Calvarium and scalp: Normal. MR/MR head wo/w con [id number] IMPRESSION: 1. No acute infarct or hemorrhage. 2. Numerous small remote bilateral lacunar infarcts in the cerebellum, LEFT gr eater than RIGHT. 3. 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
[2024-09-21] MEDS: gadobenate dimeglumine 20 mL vial IV (08:13)
== END 2024-09-21 07:10 | disposition home or self-care (01) ==
PROVIDERS: PCP Family Medicine; Visit Provider Family Medicine
DX: H53.2 Diplopia (principal); I67.82 Cerebral ischemia; G31.89 Other specified degenerative diseases of nervous system
CPT/HCPCS: 70553

== ENCOUNTER 2024-11-08 11:15 | Oncology outpatient (recurring) (ONCR) | payer BC, SELFPAY ==
[2024-11-08 11:43] LABS: Basophils % 0.7 %; Eosinophils # 0.1 10^3/uL (0.0-0.8); Eosinophils % 2.9 %; Hematocrit 41.2 % (37-53); Lymphocytes # 0.9 10^3/uL (0.8-4.8); Lymphocytes % 19.6 %; Mean Corpuscular HGB Conc 32.8 g/dL (30-55); Mean Corpuscular Hemoglobin 29.7 pg (27-33); Mean Corpuscular Volume 90.5 fl (82-101); Mean Platelet Volume 9.5 fL (7.4-10.4); Monocytes # 0.5 10^3/uL (0.2-0.9); Monocytes % 11.5 %; Neutrophils # 2.89 10^3/uL (1.8-7.7); Neutrophils % 65.3 %; Nucleated Red Blood Cells % 0 %; Platelet Count 196 10^3/cmm (157-399); Red Blood Count 4.55 10^6/uL (3.85-5.65); Red Cell Distribution Width 14.7 % (12.1-15.1); White Blood Count 4.43 10^3/uL (3.29-11.43)
[2024-11-08 12:10] LABS: Alanine Aminotransferase 19 U/L (0-41); Albumin Level 4.6 g/dL (3.5-5.2); Alkaline Phosphatase 64 U/L (40-130); Anion Gap 16.7 (5-19); Aspartate Amino Transferase 19 U/L (0-40); Blood Urea Nitrogen 22 mg/dL (8-23); Calcium 9.5 mg/dL (8.5-10.5); Carbon Dioxide 21 mmol/L (22-29); Chloride 103 mmol/L (98-107); Creatinine Clr Calc Pharmacy 79.5162; Globulin 2.8 g/dL (1.3-4.6); Glomerular Filtration Rate 75.5 mL/min (90-130); Glucose 85 mg/dL (65-115); Osmolality Calculated 285 mOsm/kg (285-295); Potassium 4.7 mmol/L (3.5-5.1); Sodium 136 mmol/L (136-145); Testosterone Total 567.7 ng/dL (193-740); Total Bilirubin 0.5 mg/dL (0.15-1.2); Total Protein 7.4 g/dL (6.6-8.7)
== END 2024-11-10 23:59 | disposition home or self-care (01) ==
PROVIDERS: PCP Family Medicine; Visit Provider Internal Medicine Medical Oncology
DX: C61 Malignant neoplasm of prostate (principal)
CPT/HCPCS: 36415; 80053; 84153; 84403; 85025

== ENCOUNTER 2025-02-14 08:52 | Oncology outpatient (recurring) (ONCR) | payer BC, SELFPAY ==
[2025-02-14 09:13] LABS: Hematocrit 41.0 % (37-53); Hemoglobin 13.50 g/dL (11.27-16.99); Mean Corpuscular HGB Conc 32.9 g/dL (30-55); Mean Corpuscular Hemoglobin 29.2 pg (27-33); Mean Corpuscular Volume 88.7 fl (82-101); Nucleated Red Blood Cells % 0 %; Platelet Count 178 10^3/cmm (157-399); Red Blood Count 4.62 10^6/uL (3.85-5.65); White Blood Count 4.41 10^3/uL (3.29-11.43)
[2025-02-14 09:43] LABS: Alanine Aminotransferase 16 U/L (0-41); Albumin Level 4.2 g/dL (3.5-5.2); Alkaline Phosphatase 64 U/L (40-130); Anion Gap 14.4 (5-19); Aspartate Amino Transferase 22 U/L (0-40); Blood Urea Nitrogen 23 mg/dL (8-23); Calcium 9.2 mg/dL (8.5-10.5); Carbon Dioxide 23 mmol/L (22-29); Chloride 105 mmol/L (98-107); Creatinine Clr Calc Pharmacy 78.3522; Globulin 2.7 g/dL (1.3-4.6); Glucose 95 mg/dL (65-115); Osmolality Calculated 289 mOsm/kg (285-295); Potassium 4.4 mmol/L (3.5-5.1); Prostate Specific Antigen 2.170 ng/mL (0-4); Sodium 138 mmol/L (136-145); Total Protein 6.9 g/dL (6.6-8.7)
== END 2025-03-13 23:59 | disposition home or self-care (01) ==
PROVIDERS: PCP Family Medicine; Visit Provider Internal Medicine Medical Oncology
DX: C61 Malignant neoplasm of prostate (principal)
CPT/HCPCS: 36415; 80053; 84153; 85025

== ENCOUNTER 2025-07-11 09:46 | Oncology outpatient (recurring) (ONCR) | payer BC, SELFPAY ==
[2025-07-11 10:12] LABS: Hematocrit 42.8 % (37-53); Hemoglobin 14.10 g/dL (11.27-16.99); Mean Corpuscular HGB Conc 32.9 g/dL (30-55); Mean Corpuscular Hemoglobin 30.5 pg (27-33); Mean Corpuscular Volume 92.4 fl (82-101); Nucleated Red Blood Cells % 0 %; Platelet Count 202 10^3/cmm (157-399); Red Blood Count 4.63 10^6/uL (3.85-5.65); White Blood Count 4.29 10^3/uL (3.29-11.43)
[2025-07-11 10:42] LABS: Alanine Aminotransferase 28 U/L (0-41); Albumin Level 4.4 g/dL (3.5-5.2); Alkaline Phosphatase 57 U/L (40-130); Anion Gap 15.6 (5-19); Aspartate Amino Transferase 26 U/L (0-40); Blood Urea Nitrogen 20 mg/dL (8-23); Calcium 9.4 mg/dL (8.5-10.5); Carbon Dioxide 26 mmol/L (22-29); Chloride 101 mmol/L (98-107); Globulin 2.3 g/dL (1.3-4.6); Glucose 95 mg/dL (65-115); Osmolality Calculated 288 mOsm/kg (285-295); Potassium 4.6 mmol/L (3.5-5.1); Sodium 138 mmol/L (136-145); Total Protein 6.7 g/dL (6.6-8.7)
== END 2025-07-13 23:59 | disposition home or self-care (01) ==
PROVIDERS: PCP Family Medicine; Visit Provider Internal Medicine Medical Oncology
DX: Z53.9 Procedure and treatment not carried out, unspecified reason; C61 Malignant neoplasm of prostate
CPT/HCPCS: 80053; 84153; 84403; 85025